=== PATIENT | male | born 1970 | race Caucasian/White ===

== ENCOUNTER 2016-06-18 20:52 | Emergency (ER) | payer OTHER | END 2016-06-18 21:00 | disposition left against medical advice (07) | LOC: CED 20:52 | DX: Z53.21 Procedure and treatment not carried out due to patient leaving prior to being seen by health care provider (principal) ==

== ENCOUNTER 2016-07-19 08:49 | Emergency (ER) | payer OTHER ==
--- NOTE | ~2016-07-19 | CR7 ---
[facility]. 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 Ordering Physician: Richi Schaffer M.D. Primary Care Physician: No Primary Care Physician MEDICAL IMAGING REPORT This report is preliminary unless electronic signature is present. EXAM AP Abdomen, single view INDICATIONS Left flank pain since yesterday. No comparisons available. FINDINGS There are multiple phleboliths in the pelvis. There is no evidence of radiopaque kidney stones. Visualized osseous structures are unremarkable. IMPRESSION Multiple phleboliths in the pelvis. No radiopaque kidney stone. Dictated by... Joseph Granados M.D. THIS IS AN ELECTRONICALLY VERIFIED REPORT Joseph Granados M.D. at 07/19/2016 4:59 PM TONY/bel TD: 07/19/2016 13:14 JOB #: [id number] MEDICAL IMAGING REPORT Page 1 of 1
[2016-07-19] MEDS ORDERED: ZOLOFT (09:01)
[2016-07-19] MEDS ORDERED: LISINOPRIL (09:01)
[2016-07-19] MEDS ORDERED: DEPAKOTE ER (09:01)
[2016-07-19] MEDS ORDERED: NAPROXEN (09:01)
[2016-07-19] MEDS ORDERED: COLCHICINE PO (09:02)
[2016-07-19] MEDS ORDERED: PERCOCET10 (09:02)
[2016-07-19] MEDS ORDERED: KLONOPIN (09:03)
[2016-07-19 09:54] LABS: URINE SOURCE CLEAN CATCH
[2016-07-19 09:56] LABS: URINE APPEARANCE CLEAR; URINE BILIRUBIN NEG (NEG); URINE BLOOD 3+ (NEG); URINE COLOR YELLOW; URINE GLUCOSE NEG (NORM); URINE KETONE NEG (NEG); URINE LEUKOCYTE ESTERASE NEG (NEG); URINE NITRATE NEG (NEG); URINE PH 5.5 (5-8); URINE PROTEIN TRACE (NEG); URINE SPECIFIC GRAVITY >=1.030 (1.003-1.035)
[2016-07-19 09:59] LABS: MICRO INDICATED? YES
[2016-07-19 10:09] LABS: CULTURE INDICATED? NO; URINE BACTERIA NEG (NEG); URINE RBC 100-200 /[HPF] (0-2); URINE WBC 0-2 /[HPF] (0-5)
== END 2016-07-19 11:42 | disposition home or self-care (01) ==
LOC: SED 08:49
PROVIDERS: Emergency Medicine
DX: N20.1 Calculus of ureter (principal); G43.909 Migraine, unspecified, not intractable, without status migrainosus; I10 Essential (primary) hypertension; Z79.891 Long term (current) use of opiate analgesic; Z79.899 Other long term (current) drug therapy; Z88.0 Allergy status to penicillin
CPT/HCPCS: 74000; 81003; 96372; 99284; J1170; J2550; J3360